=== PATIENT | female | born 2000 | race Caucasian/White ===

== ENCOUNTER 2021-09-08 22:10 | Emergency (ER) | payer BC, MEDICAID ==
[~2021-09-08] VITALS: Ht 162.6 cm; Wt 61.2 kg
[2021-09-08 23:10] LABS: Urine Bacteria FEW /hpf (None Seen); Urine Blood Negative /uL (Negative); Urine Mucus MODERATE (None Seen); Urine Specific Gravity 1.029 (1.001-1.035); Urine WBC 13 /hpf (0 - 5)
[2021-09-09 00:06] LABS: Eosinophils # (auto) 0 10 ^3/uL (0-0.8); Hemoglobin 13.4 g/dL (12.2-16.2); Mean Corpuscular Hemoglobin 24.9 pg (28.0-32.0); Mean Corpuscular Hgb Conc. 32.1 g/dL (32.0-36.0); Neutrophils % (auto) 82.7 % (37.0-80.0); White Blood Cell 13.2 10^3/uL (4.4-10.8)
[2021-09-09 00:07] LABS: Basophils # (auto) 0.1 10 ^3/uL (0-0.2); Basophils % (auto) 0.4 % (0.0-2.0); Hematocrit 41.8 % (36.0-46.0); Lymphocytes # (auto) 1.5 10 ^3/uL (0.4-5.4); Lymphocytes % (auto) 11.4 % (10.0-50.0); Mean Corpuscular Volume 77.6 fL (80.0-100.0); Monocytes # (auto) 0.7 10 ^3/uL (0-1.3); Monocytes % (auto) 5.5 % (0.0-12.0); Red Blood Cells 5.39 10^6/uL (4.0-5.20); Red Cell Distribution Width 17.4 % (11.8-14.3)
[2021-09-09 00:31] LABS: Calcium 9.5 mg/dL (8.5-10.1)
[2021-09-09 00:33] LABS: Albumin 4.1 g/dL (3.4-5.0)
[2021-09-09 00:36] LABS: Bilirubin, Total 0.5 mg/dL (0.2-1.0); Total Protein 7.6 g/dL (6.4-8.2)
[2021-09-09] MEDS ORDERED: SODIUM CHLORIDE 0.9% 1,000 ML IV ONE ×2 (02:45)
[2021-09-09] MEDS ORDERED: ONDANSETRON HCL 4 MG/2 ML VIAL IV ONE ×2 (02:45→05:15)
[2021-09-09 04:00] VITALS: BP 133/82
[2021-09-09] MEDS ORDERED: cefTRIAXone 1GM/50ML D5W 50 ML IV ONE (05:15)
[2021-09-09] MEDS ORDERED: CEPH-322 PO (05:32)
[2021-09-09] MEDS ORDERED: ONDA-144 PO (05:32)
== END 2021-09-09 06:27 | disposition home or self-care (01) ==
LOC: ER 22:16
DX: O26.891 Other specified pregnancy related conditions, first trimester (principal); O21.9 Vomiting of pregnancy, unspecified; Z3A.01 Less than 8 weeks gestation of pregnancy
CPT/HCPCS: 36415; 76801; 80053; 81001; 81025; 83690; 84702; 85025; 86850; 86900; 86901; 96361; 96365; 96375; 99284; J0696; J2405; J7030